=== PATIENT | male | born 1990 ===

== ENCOUNTER 2020-06-05 08:13 | Outpatient (CLI) | payer OTHER, SELFPAY ==
[2020-06-06 01:30] LABS: SARS-CoV-2 RNA PCR Positive
== END 2020-06-05 08:14 | disposition home or self-care (01) ==
LOC: CHSLAB 08:15
PROVIDERS: PCP Family Medicine; Visit Provider Family Medicine
DX: U07.1 COVID-19 (principal)
CPT/HCPCS: 87635; C9803; U0003

== ENCOUNTER 2021-08-25 16:14 | Outpatient (CLI) | payer BC, SELFPAY ==
--- NOTE | 2021-08-25 16:17 | ECG_ITS ---
Measurements Intervals [place] Rate: 76 P: 71 KS: 202 QRS: 86 QRSD: 106 T: 59 QT: 344 QTc: 388 Interpretive Statements SINUS RHYTHM WITH SINUS ARRHYTHMIA INCOMPLETE RIGHT BUNDLE BRANCH BLOCK BORDERLINE R WAVE PROGRESSION, ANTERIOR LEADS BORDERLINE ECG Electronically Signed On 08-25-2021 20:27:49 REMOTE SENSING PROGRAM MANAGER by Osorio Treadwell D.O.
[2021-08-25 17:09] LABS: Basophils Absolute Auto 0.03 K/mm3 (0.00-0.10); Basophils Percent Auto 0.5 % (0.0-1.0); Eosinophils Absolute Auto 0.11 K/mm3 (0.02-0.50); Eosinophils Percent Auto 1.9 % (1.0-6.0); Hematocrit 43.7 % (40.0-54.0); Hemoglobin 15.4 g/dL (14.0-18.0); Immature Granulocyte Absolute 0.02 K/mm3 (0.00-0.00); Immature Granulocyte Percent A 0.3 % (0.0-0.0); Lymphocytes Absolute Auto 2.22 K/mm3 (1.10-4.50); Lymphocytes Percent Auto 38.3 % (18.0-42.0); Mean Corpuscular HGB Conc 35.2 g/dL (32.0-36.0); Mean Corpuscular Hemoglobin 30.7 pg (27.0-31.0); Mean Corpuscular Volume 87.2 fL (78.0-102.0); Mean Platelet Volume 10.4 fl (8.7-11.0); Monocytes Absolute Auto 0.48 K/mm3 (0.10-0.90); Monocytes Percent Auto 8.3 % (2.0-11.0); Neutrophils Absolute Auto 2.9 K/mm3 (1.7-7.2); Neutrophils Percent Auto 50.7 % (50.0-70.0); Platelet Count Result 316 K/mm3 (150-420); Red Blood Count 5.01 M/mm3 (4.70-6.10); Red Cell Distribution Width 11.9 % (11.6-14.4); White Blood Count 5.8 K/mm3 (4.8-10.8)
[2021-08-25 17:47] LABS: Alanine Aminotransferase 155 U/L (16-63); Albumin Level 4.2 g/dL (3.4-5.0); Alkaline Phosphatase 80 U/L (46-116); Anion Gap 8 mmol/L (8-16); Aspartate Amino Transferase 50 U/L (15-37); Bilirubin,Total 0.6 mg/dL (0.00-1.00); Blood Urea Nitrogen 22 mg/dL (7-18); Calcium 9.2 mg/dL (8.5-10.1); Carbon Dioxide 27 mmol/L (21-32); Chloride 102 mmol/L (98-108); Estimated Glomerular Filt Rate > 60; Free T4 Free Thyroxine 0.92 ng/dL (0.76-1.46); Glucose 75 mg/dL (70-99); Magnesium 2.2 mg/dL (1.8-2.4); Osmolality Calculated 286 mOsm/kg (285-295); Potassium 4.1 mmol/L (3.5-5.1); Sodium 137 mmol/L (136-145); Thyroid Stimulating Hormone 2.04 uIU/mL (0.36-3.74); Vitamin B12 749 pg/mL (193-986)
[2021-08-28 14:44] LABS: Vitamin D 25 Hydroxy 15 ng/mL (30-100)
== END 2021-08-25 16:15 | disposition home or self-care (01) ==
PROVIDERS: PCP Nurse Practitioner Family; Visit Provider Nurse Practitioner Family
DX: R00.0 Tachycardia, unspecified (principal); F41.9 Anxiety disorder, unspecified; Z79.899 Other long term (current) drug therapy
CPT/HCPCS: 36415; 80053; 82306; 82607; 83735; 84439; 84443; 85025; 93005

== ENCOUNTER 2021-09-08 12:51 | Outpatient (CLI) | payer BC, SELFPAY ==
[2021-09-08 13:33] LABS: Alanine Aminotransferase 139 U/L (16-63); Albumin Level 4.4 g/dL (3.4-5.0); Alkaline Phosphatase 77 U/L (46-116); Aspartate Amino Transferase 49 U/L (15-37); Bilirubin Direct 0.1 mg/dL (0-0.2); Bilirubin,Total 0.6 mg/dL (0.00-1.00); Total Protein 8.2 g/dL (6.4-8.2)
== END 2021-09-08 12:52 | disposition home or self-care (01) ==
LOC: CHSLAB 12:53
PROVIDERS: PCP Nurse Practitioner Family; Visit Provider Nurse Practitioner Family
DX: R74.8 Abnormal levels of other serum enzymes (principal); E55.9 Vitamin D deficiency, unspecified
CPT/HCPCS: 36415; 80076

== ENCOUNTER 2021-09-15 07:46 | Outpatient (CLI) | payer BC, SELFPAY ==
--- NOTE | ~2021-09-15 | US_ITS ---
EXAMINATION: US right upper quadrant DATE: 09/15/2021 08:07 INDICATION: Fatty change of liver not elsewhere classified TECHNIQUE: Multiple grayscale and Doppler ultrasound images of the abdomen were obtained. COMPARISON: 12/05/2012 FINDINGS: The head and body of the pancreas are normal. The pancreatic tail is obscured by bowel gas. The liver demonstrates increased echogenicity, heterogenous echotexture, and decreased through trans mission. No surface nodularity. Normal hepatopetal flow in the main portal vein. The gallbladder is normal with no abnormal wall thickening, pericholecystic fluid or stones. The normal common bile duct measures 3 mm. There was no sonographic Lambert sign. IMPRESSION: 1. Diffuse hepatic steatosis. Reviewed, dictated and finalized at location A. CONTROL FIELD REPRESENTATIVE
== END 2021-09-15 07:47 | disposition home or self-care (01) ==
LOC: CHSIMG 07:48
PROVIDERS: PCP Nurse Practitioner Family; Visit Provider Nurse Practitioner Family
DX: K76.0 Fatty (change of) liver, not elsewhere classified (principal)
CPT/HCPCS: 76705

== ENCOUNTER 2022-03-31 16:19 | Outpatient (CLI) | payer OTHER, SELFPAY ==
[2022-04-05 12:49] LABS: Vitamin D 25 Hydroxy 53 ng/mL (30-100)
== END 2022-03-31 16:20 | disposition home or self-care (01) ==
LOC: CHSLAB 16:21
PROVIDERS: PCP Nurse Practitioner Family; Visit Provider Nurse Practitioner Family
DX: E55.9 Vitamin D deficiency, unspecified (principal); Z79.899 Other long term (current) drug therapy
CPT/HCPCS: 36415; 82306

== ENCOUNTER 2022-06-27 07:24 | Outpatient (CLI) | payer OTHER, SELFPAY ==
--- NOTE | ~2022-06-27 | US_ITS ---
US abdomen complete EXAMINATION: US Abdomen Complete INDICATION: Abdomen pain. PROCEDURE: Realtime High Resolution abdomen ultrasound. COMPARISON: 09/15/2021 FINDINGS: Gallbladder within normal limits. No gallstones, pericholecystic fluid, gallbladder wall t hickening or biliary dilatation. Common bile duct measures 3.7 mm. Liver echotexture within normal limits without focal mass. There is hepatomegaly. Liver measures 17.4 cm. Pancreas within normal limits. Pancreatic tail is obscured by bowel gas. Spleen is enlarged me asuring 14.9 cm. Renal echotexture is within normal limits bilaterally without hydronephrosis, contou r deforming mass or renal stone. Right kidney measures 11.8 cm. Left kidney measures 12.7 cm. Visualized aspects of the aorta and IVC are within normal limits. Portal vein is patent. No sonograph ic Lambert's sign indicated by the technologist. IMPRESSION: 1: Hepatosplenomegaly. Reviewed, dictated and finalized at location A. N GOODS HEMMER IMPRESSION: 1: Hepatosplenomegaly.
== END 2022-06-27 07:25 | disposition home or self-care (01) ==
LOC: CHSIMG 07:25
PROVIDERS: PCP Nurse Practitioner Family; Visit Provider Nurse Practitioner Family
DX: R10.9 Unspecified abdominal pain (principal)
CPT/HCPCS: 76700

== ENCOUNTER 2022-06-29 08:05 | Outpatient (CLI) | payer OTHER, SELFPAY ==
--- NOTE | ~2022-06-29 | XR_ITS ---
EXAMINATION: XR chest 2V 06/29/2022 08:42 INDICATION: Chest pain PROCEDURE: 2 view chest COMPARISON: Comparison to multiple prior studies sequentially, with oldest reviewed study dated 12/2006. FINDINGS: The lungs are clear. The cardiomediastinal silhouette is within normal limits. There are no pleural effusions. There is no pneumothorax suspected. IMPRESSION: 1: NO ACUTE CARDIOPULMONARY DISEASE. Reviewed, dictated and finalized at location A. E RIDE OPERATOR
[2022-06-29 08:19] LABS: Basophils Absolute Auto 0.01 K/mm3 (0.00-0.10); Basophils Percent Auto 0.2 % (0.0-1.0); Eosinophils Percent Auto 2.1 % (1.0-6.0); Hematocrit 45.8 % (40.0-54.0); Hemoglobin 16.3 g/dL (14.0-18.0); Immature Granulocyte Absolute 0.01 K/mm3 (0.00-0.00); Immature Granulocyte Percent A 0.2 % (0.0-0.0); Lymphocytes Absolute Auto 1.71 K/mm3 (1.10-4.50); Lymphocytes Percent Auto 35.8 % (18.0-42.0); Mean Corpuscular HGB Conc 35.6 g/dL (32.0-36.0); Mean Corpuscular Volume 87.2 fL (78.0-102.0); Mean Platelet Volume 10.1 fl (8.7-11.0); Monocytes Absolute Auto 0.39 K/mm3 (0.10-0.90); Monocytes Percent Auto 8.2 % (2.0-11.0); Neutrophils Absolute Auto 2.6 K/mm3 (1.7-7.2); Neutrophils Percent Auto 53.5 % (50.0-70.0); Platelet Count Result 346 K/mm3 (150-420); Red Blood Count 5.25 M/mm3 (4.70-6.10); Red Cell Distribution Width 11.9 % (11.6-14.4); White Blood Count 4.8 K/mm3 (4.8-10.8)
[2022-06-29 08:30] LABS: Add Urine Microscopic? NO; Appearance Urine Clear (Clear); Bilirubin Urine Negative (Negative); Blood Urine Negative (Negative); Color Urine Yellow (Yellow); Glucose Urine UA Negative (Negative); Ketones Urine Negative (Negative); Leukocyte Esterase Ur Negative LEU/UL (Negative); Nitrate Urine Negative (Negative); Protein Urine Negative (Negative); Specific Grav Ur 1.025 (1.010-1.020); Urobilinogen Urine 0.2 mg/dL (0.2-1.0)
[2022-06-29 08:53] LABS: Alanine Aminotransferase 141 U/L (16-63); Albumin Level 4.8 g/dL (3.4-5.0); Alkaline Phosphatase 74 U/L (46-116); Anion Gap 10 mmol/L (8-16); Aspartate Amino Transferase 47 U/L (15-37); Bilirubin,Total 1.2 mg/dL (0.00-1.00); Blood Urea Nitrogen 17 mg/dL (7-18); Calcium 9.4 mg/dL (8.5-10.1); Carbon Dioxide 27 mmol/L (21-32); Chloride 104 mmol/L (98-108); Estimated Glomerular Filt Rate > 60; Glucose 98 mg/dL (70-99); Osmolality Calculated 293 mOsm/kg (285-295); Potassium 4.7 mmol/L (3.5-5.1); Sodium 141 mmol/L (136-145); Total Protein 8.6 g/dL (6.4-8.2)
[2022-07-03 12:05] LABS: Hepatitis A Antibody IgM Nonreactive; Hepatitis B Core Antibody Nonreactive (Nonreactive); Hepatitis B Surface Antigen Nonreactive (Nonreactive); Hepatitis C Signal to Cutoff 0.03 ratio (<1.00); Hepatitis C Virus Antibody Nonreactive (Nonreactive)
== END 2022-06-29 08:06 | disposition home or self-care (01) ==
LOC: CHSLAB 08:07
PROVIDERS: PCP Nurse Practitioner Family; Visit Provider Nurse Practitioner Family
DX: R16.2 Hepatomegaly with splenomegaly, not elsewhere classified (principal)
CPT/HCPCS: 36415; 71046; 80053; 80074; 81003; 85025

== ENCOUNTER 2022-09-21 10:14 | Outpatient (CLI) | payer OTHER, SELFPAY ==
[2022-09-21 10:57] LABS: Alanine Aminotransferase 52 U/L (16-63); Albumin Level 4.3 g/dL (3.4-5.0); Alkaline Phosphatase 88 U/L (46-116); Anion Gap 7 mmol/L (8-16); Aspartate Amino Transferase 21 U/L (15-37); Bilirubin,Total 0.6 mg/dL (0.00-1.00); Blood Urea Nitrogen 19 mg/dL (7-18); Calcium 9.2 mg/dL (8.5-10.1); Carbon Dioxide 31 mmol/L (21-32); Chloride 103 mmol/L (98-108); Estimated Glomerular Filt Rate > 60; Glucose 88 mg/dL (70-99); Osmolality Calculated 293 mOsm/kg (285-295); Potassium 4.5 mmol/L (3.5-5.1); Sodium 141 mmol/L (136-145)
== END 2022-09-21 10:15 | disposition home or self-care (01) ==
LOC: CHSLAB 10:15
PROVIDERS: PCP Nurse Practitioner Family; Visit Provider Nurse Practitioner Family
DX: R74.8 Abnormal levels of other serum enzymes (principal)
CPT/HCPCS: 36415; 80053

== ENCOUNTER 2023-07-10 10:04 | Outpatient (CLI) | payer BC, SELFPAY ==
--- NOTE | ~2023-07-10 | XR_ITS ---
EXAMINATION: XR lumbar spine 2-3V DATE: 07/10/2023 10:28 INDICATION: Low back pain, unspecified TECHNIQUE: Anteroposterior and lateral views of the lumbar spine, and cone-down lateral view of the l umbosacral junction were obtained. COMPARISON: None. FINDINGS: Bone alignment is normal. There is no fracture. The vertebral body heights and intervertebr al disc spaces are normal. The bowel gas pattern is unremarkable. IMPRESSION: 1. Unremarkable lumbar spine radiographs. Reviewed, dictated and finalized at location B. TAL CAMERA TECHNICIAN
== END 2023-07-10 10:05 | disposition home or self-care (01) ==
PROVIDERS: PCP Nurse Practitioner Family; Visit Provider Nurse Practitioner Family
DX: M54.50 Low back pain, unspecified (principal)
CPT/HCPCS: 72100

== ENCOUNTER 2023-07-13 14:55 | Outpatient (RCR) | payer BC, SELFPAY ==
--- NOTE | 2023-07-13 16:48 | OPREHPOC ---
Outpatient Therapy Plan of Care This is a Multidisciplinary Plan of Care that may contain components documented by all disciplines (PT, OT, and ST.) PT Problem 1 PT Problem #1 Knowledge Deficit PT Goal 1 Goal The patient will be independent in a home exercise program. Target Visit 12 PT Problem 2 PT Problem #2 Pain PT Goal 1 Goal The patient will report 2/10 or less low back pain with daily and work activities. Target Visit 12 PT Problem 3 PT Problem #3 Impaired Sensation PT Goal 1 Goal The patient will demonstrate less than 15% self perceived disability per the Oswestry Back Index questionnaire. Target Visit 12 PT Problem 4 PT Problem #4 Impaired Strength PT Goal 1 Goal The patient will demonstrate at least 4/5 strength in the lower abdominals without pain elicited to support the spine for lifting activities. Target Visit 12 PT Problem 5 PT Problem #5 Impaired Safety Awareness PT Goal 1 Goal The patient will demonstrate the ability to lift 25# from floor to waist with proper body mechanics and no low back pain elicited. Target Visit 12
--- NOTE | 2023-07-13 16:48 | PTOPEVAL1 ---
Assessment and note entered by Bekah Charles, PT Evaluation Information Assessment Status Evaluation Diagnosis Low Back Pain Subjective Information Stefan Vides reports central and right lower back that has been off and on for several years. He has tried chiropractor treatments in the past but does not see one currently. 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 When he went back to work, he started having back pain again. He notes increased pain with bending to the side and sometimes when he bends forward. He denies numbness and tingling. He does note the most pain waking up in the morning and after working all day. He works at [employer] and has to lift boxes all day. He would like to get back into working out but is afraid to aggravate his back. He reports he was prescribed Diclofenac but he has not taken it due to the fact that he has to take 325 mg of aspirin daily after his arthery dissection. Reported Pain Level Pain Score 1: Self Report Assessment PT Clinical Summary Stefan Vides is a 33 y/o male who presents with low back pain that has been intermittent for several years. He was off work over the summer and noticed pain resolved but when he returned to work in April 2023 the back pain returned as well. He has difficulty with bending at the waist, lifting heavy objects frequently, and first thing in the morning. He objectively demonstrates decreased and painful lumbar extension and bilateral lateral flexion AROM, decreased core strength, decreased hamstring flexibility, and tenderness along the L4 -5 spinous processes and right sided soft tissue adjacent to L4-5. He has increased right lower back pain with right straight leg and left straight leg testing indicating a possible disc issue. He will benefit from skilled PT to address these limitations. Plan of Care Interventions Electrical Stimulation,Hot Pack/Cold Pack,Manual Therapy,Neuro Re-education,Patient/Caregiver Educati,Therapeutic Activities,Therapeutic Exercise PT Services Indicated Yes Treatment Frequency and 3 times a week for 12 visits Duration These treatments will address the objective and functional deficits as defined above. The patient will be advanced safely and appropriately in order for the patient to progress towards his/her prior level of function. Additional exercises will
--- NOTE | 2023-08-10 17:21 | OPREHPOC ---
Outpatient Therapy Plan of Care This is a Multidisciplinary Plan of Care that may contain components documented by all disciplines (PT, OT, and ST.) PT Problem 1 PT Problem #1 Knowledge Deficit PT Goal 1 Goal The patient will be independent in a home exercise program. Target Visit 12 Progress Met PT Problem 2 PT Problem #2 Pain PT Goal 1 Goal The patient will report 2/10 or less low back pain with daily and work activities. Target Visit 12 Progress Not Met PT Problem 3 PT Problem #3 Impaired Functional Mobil PT Goal 1 Goal The patient will demonstrate less than 15% self perceived disability per the Oswestry Back Index questionnaire. Target Visit 12 Progress Not Met PT Problem 4 PT Problem #4 Impaired Strength PT Goal 1 Goal The patient will demonstrate at least 4/5 strength in the lower abdominals without pain elicited to support the spine for lifting activities. Target Visit 12 Progress Not Met PT Problem 5 PT Problem #5 Impaired Safety Awareness PT Goal 1 Goal The patient will demonstrate the ability to lift 25# from floor to waist with proper body mechanics and no low back pain elicited. Target Visit 12 Progress Not Met
--- NOTE | 2023-08-10 17:21 | PTOPPROG ---
Assessment and note entered by Bekah Charles, PT Evaluation Information Assessment Status Progress Diagnosis Low Back Pain Onset 07/10/23 Subjective Information Stefan Vides reports that overall his low back pain has not changed and may be a little worse since initiating PT. He has noted increased pain with electrical stimulation and lumbar traction trials in PT. He notes he continues to have worse pain with laying on a hard surface, bending over to tie his shoes, running, jumping, and repetitive lifting. He does however report minimal pain if he is off work and is just hanging out around the house. He plans to call his doctor to schedule a follow up appointment. Assessment PT Clinical Summary Stefan Vides has completed 10 skilled PT visits for low back pain. He is reporting no overall improvement and feels he may feel a little worse. He notes he has worse pain in the am, after work where he is lifting and bending frequently, laying on a hard surface, running, and jumping. We have tried heat, electrical stimulation, and traction for pain relief with worsening of pain noted. Flexion biased exercises and extension biased exercises have not changed symptoms. He has been able to tolerate core and hip strengthening in standing. He objectively demonstrates improved lumbar AROM since initiating PT. His core strength is unchanged and he continues to have increased pain with cross straight leg raise testing. He is independent in a home exercise program and was put on hold until he sees his MD due to lack of progress and worsening pain. Plan of Care Interventions Electrical Stimulation,Hot Pack/Cold Pack, Mechanical Traction,Patient/Caregiver Educati, Therapeutic Activities,Therapeutic Exercise PT Services Indicated Yes Treatment Frequency and On hold until follow up with his physician Duration These treatments will address the objective and functional deficits as defined above. The patient will be advanced safely and appropriately in order for the patient to progress towards his/her prior level of function. Additional exercises will be introduced and as well as a comprehensive home exercise program upon discharge, if needed, ?to ensure carryover of functional gains achieved in the clinic. This treatment plan has been reviewed and agreement upon by the patient.
--- NOTE | 2023-11-02 10:56 | PCPTNOTE ---
11/02/23: Pt had a follow up with PCP after last PT visit on 08/10/23 and has not been seen since. He is discharged. -Bekah Charles, PT
== END 2023-08-10 20:00 | disposition home or self-care (01) ==
LOC: CHSPT 14:55
PROVIDERS: PCP Family Medicine; Visit Provider Nurse Practitioner Family
DX: M54.50 Low back pain, unspecified (principal)
CPT/HCPCS: 97014; 97110; 97161; G0283

== ENCOUNTER 2023-10-20 07:47 | Outpatient (CLI) | payer BC, SELFPAY ==
[2023-10-20 09:12] LABS: Alanine Aminotransferase 69 U/L (16-63); Albumin Level 4.4 g/dL (3.4-5.0); Alkaline Phosphatase 69 U/L (46-116); Anion Gap 10 mmol/L (8-16); Aspartate Amino Transferase 24 U/L (15-37); Blood Urea Nitrogen 22 mg/dL (7-18); Calcium 9.2 mg/dL (8.5-10.1); Carbon Dioxide 27 mmol/L (21-32); Chloride 103 mmol/L (98-108); Cholesterol 143 mg/dL (0-200); Estimated Glomerular Filt Rate > 60; Folic Acid 12.8 ng/mL (8.6->20); Glucose 96 mg/dL (70-99); HDL Direct 47 mg/dL (40-60); LDL Cholesterol Calculated 85 mg/dL (<130); Osmolality Calculated 293 mOsm/kg (285-295); Potassium 4.6 mmol/L (3.5-5.1); Sodium 140 mmol/L (136-145); Triglycerides 54 mg/dL (0-150); Vitamin B12 521 pg/mL (193-986)
[2023-10-26 22:12] LABS: Vitamin D 25 Hydroxy 54 ng/mL (30-100)
== END 2023-10-20 07:48 | disposition home or self-care (01) ==
LOC: CHSLAB 07:51
PROVIDERS: PCP Nurse Practitioner Family
DX: F31.30 Bipolar disorder, current episode depressed, mild or moderate severity, unspecified (principal); E78.5 Hyperlipidemia, unspecified; E53.8 Deficiency of other specified B group vitamins; E55.9 Vitamin D deficiency, unspecified; Z79.899 Other long term (current) drug therapy
CPT/HCPCS: 36415; 80053; 80061; 82306; 82607; 82746

== ENCOUNTER 2023-12-04 16:18 | Outpatient (NON) | payer BC, SELFPAY | END 2023-12-04 16:19 | disposition home or self-care (01) | LOC: CHSLAB 16:21 | PROVIDERS: Visit Provider Nurse Practitioner Family | DX: M54.50 Low back pain, unspecified (principal) | CPT/HCPCS: 87086; 87088 ==